=== PATIENT | male | born 1940 | race Caucasian/White ===

== ENCOUNTER 2019-11-25 13:04 | Emergency (ER) | payer MEDICARE, BC ==
[~2019-11-25] VITALS: Ht 177.8 cm; Wt 84.8 kg
[~2019-11-25 13:04] MED LIST: ACETAMINOPHEN325 M1 PO; ARAVA20 MG PO; CARVEDILOL25 MG PO; CARVEDILOL3.125 MG PO; Citracal PO; DIAZEPAM 5 MG5 M1 OR; ESTER C PO; ESTER-C 500 MG1 EACH PO; FOLTX1 TAB PO; GABAPENTIN100 MG PO; HYDROCODON-ACE1 EAC7 PO; HYTRIN 5 M5 MG/1 CAP PO; IRON325 PO; Iron PO; LASIX 20 MG TAB20 MG PO; METHADONE HCL 110 MG PO; MOM; NORCO 10-325 T1 EACH PO; PACERONE 200 M200 M1 PO; PREDNISONE 5 MG5 M1 PO; PRILOSEC 20 MG20 MG PO; PRINIVIL20 MG PO; TOCILIZUMAB IV
[2019-11-25] MEDS ORDERED: NEURONTIN100 MG PO (13:17)
[2019-11-25] MEDS ORDERED: NAMENDA 10 MG T10 MG PO (13:17)
[2019-11-25] MEDS ORDERED: PROLIA60 MG/1 ML SUBQ (13:18)
[2019-11-25 14:32] LABS: ABSOLUTE BASOPHILS 0.1 thou/uL (0.0-0.2); ABSOLUTE EOSINOPHILS 0.3 thou/uL (0.0-0.7); ABSOLUTE LYMPHOCYTES 0.9 thou/uL (0.8-5.3); ABSOLUTE MONOCYTES 0.7 thou/uL (0.0-1.2); ABSOLUTE NEUTROPHILS 8.3 thou/uL (1.6-8.1); BASOPHILS 0.5 %; EOSINOPHILS 2.8 %; HEMATOCRIT 42.9 % (42.0-52.0); HEMOGLOBIN 14.9 gm/dL (14.0-18.0); LYMPHOCYTES 9.2 %; MCHC 34.7 g/dL (28.0-37.0); MCV 89.5 fL (80.0-100.0); MONOCYTES 6.4 %; MPV 7.1 fl. (7.2-11.1); NUCLEATED RBCS 0 /100WBC; PLATELET COUNT* 133 thou/uL (150-400); POLYS 81.1 %; RBC 4.79 mil/uL (4.50-6.00); RDW-CV 14.6 % (10.5-14.5); WBC 10.3 thou/uL (4.0-11.0)
[2019-11-25 14:41] LABS: CALCIUM 8.7 mg/dL (8.5-10.1); CREATININE 0.8 mg/dL (0.6-1.3); POTASSIUM 3.8 mmol/L (3.5-5.1)
[2019-11-25 14:45] LABS: ALBUMIN 3.4 g/dL (3.4-5.0); TOTAL BILIRUBIN 0.7 mg/dL (<0.1-1.0); TOTAL PROTEIN 6.2 g/dL (6.4-8.2)
[2019-11-25 14:55] LABS: APTT 24.1 Seconds (25.0-31.3); INR 1.1; PROTIME 11.7 Seconds (9.20-11.50)
[2019-11-25 15:57] VITALS: BP 120/75
== END 2019-11-25 15:58 | disposition home or self-care (01) ==
LOC: M.ERS 13:04
PROVIDERS: Nurse Practitioner Family
DX: S50.12XA Contusion of left forearm, initial encounter (principal); D69.6 Thrombocytopenia, unspecified; I10 Essential (primary) hypertension; I48.91 Unspecified atrial fibrillation; M06.9 Rheumatoid arthritis, unspecified; Z90.49 Acquired absence of other specified parts of digestive tract; Z88.1 Allergy status to other antibiotic agents; Z88.6 Allergy status to analgesic agent; X58.XXXA Exposure to other specified factors, initial encounter; Y93.89 Activity, other specified; Y92.89 Other specified places as the place of occurrence of the external cause; Y99.8 Other external cause status